=== PATIENT | female | born 1935 | race Caucasian/White ===

== ENCOUNTER 2019-01-30 20:37 | Emergency (ER) | payer SELFPAY ==
[~2019-01-30] VITALS: Ht 152.4 cm; Wt 65.8 kg
[2019-01-30 22:04] VITALS: BP 176/85; PULSE 99; RESP 20; Ht 152.4 cm; Wt 65.8 kg
== END 2019-01-31 02:38 | disposition left against medical advice (07) ==
LOC: E/R 20:37
DX: Z53.21 Procedure and treatment not carried out due to patient leaving prior to being seen by health care provider (principal)

== ENCOUNTER 2019-03-24 11:02 | Inpatient (IN) | payer MEDICARE, OTHER ==
[~2019-03-24] VITALS: Ht 157.5 cm; Wt 56.8 kg
[~2019-03-24 11:02] MED LIST: AMLO5TAB4 PO; ATOR-2 PO; CALC500T11 PO; DEXA4TAB PO; GABA300C16 PO; LEVO25TA6 PO; LEVO500T48 PO; LIPA1CAP6 PO; METO-429 PO; ONDA4TAB13 PO; PANT40TA3 PO; PROP20TA4 PO
[2019-03-24] MEDS ORDERED: SOD CHLORIDE 0.9% 1,000 ML IV STA (11:54)
--- NOTE | 2019-03-24 13:09 | ERD ---
ER Documentation Chief Complaint Chief Complaint BIBA from home c/o: altered, memory loss, incontinence x2days HPI This is an 83-year-old woman brought in by EMS from home for 2 days of confusion, loss of bladder control, not getting out of bed or speaking. Prior to 2 days ago patient was able to ambulate and speak in full sentences and hold a conversation although family members are at the bedside today for the last 2 days she is appeared weak and has not been able to get out of bed and has not been speaking to them. She has had no seizure activity, no fevers or chills, no vomiting or diarrhea. ROS All systems reviewed and are negative except as per history of present illness. Medications Home Meds Reported Medications Ondansetron Hcl* (Zofran*) 4 Mg Tab, 4 MG PO Q6H PRN for NAUSEA AND OR VOMITING, TAB 03/24/19 Metoprolol Tartrate* (Lopressor*) 50 Mg Tab, 50 MG PO DAILY, #60 TAB 03/24/19 Atorvastatin* (Atorvastatin*) 80 Mg Tablet, 80 MG PO QHS, #30 TAB 03/24/19 Dmnnqt-Mdypzpsu-Ouobxgd* (Creon DR* 24,000) 24,000 L-76,000-120,000 Unit Capsule., 1 CAP PO WITH MEALS, CAP 03/24/19 Pantoprazole* (Protonix*) 40 Mg Tablet.dr, 40 MG PO DAILY, TAB 03/24/19 Amlodipine Besylate* (Norvasc*) 5 Mg Tablet, 5 MG PO DAILY, TAB 03/24/19 Gabapentin* (Gabapentin*) 300 Mg Capsule, 300 MG PO BID, #60 CAP 03/24/19 Propranolol Hcl* (Propranolol Hcl*) 20 Mg Tablet, 20 MG PO BID, TAB 03/24/19 Calcium Carbonate (Oysco-500) 500 Mg Tablet, 500 MG PO DAILY, TAB 03/24/19 Levothyroxine Sodium* (Levothyroxine Sodium*) 25 Mcg Tablet, 25 MCG PO BEFORE BREAKFAST, #30 TAB 03/24/19 Levofloxacin* (Levaquin*) 500 Mg Tablet, 500 MG PO DAILY, TAB for 7 days, start date 03/23/19 03/24/19 Allergies Allergies: Coded Allergies: No Known Allergy (Unverified , 03/24/19) PMhx/Soc Hypothyroidism, hypertension, gastritis, arthritis, mild dementia Medical and Surgical Hx: pt denies Surgical Hx Hx Cardiac Disorders: Yes (Hypertension) Hx Alcohol Use: No Hx Substance Use: No Hx Tobacco Use: No Smoking Status: Never smoker FmHx Family History: No diabetes Physical Exam Vitals Vital Signs Date Temp Pulse Resp B/P (MAP) Pulse Ox O2 O2 Flow FiO2 Time Delivery Rate 03/24/19 84 20 149/81 99 Room Air 13:29 (103) 03/24/19 98.1 88 16 157/71 96 11:18 (99) Physical Exam GENERAL: Well-developed, well-nourished elderly woman, nontoxic in appearance, afebrile HEENT: Moist mucous membranes, pink conjunctiva, no cervical spine tenderness or step-off deformities, no goiter, no jaundice or icterus NEURO: Eyes are closed, pupils equal round reactive to light, patient is mostly aphasic but able to follow simple commands, no focal deficits or facial asymmetry CARDIAC: Regular rate and rhythm, no murmurs rubs or gallops LUNGS: Clear bilaterally no wheezing crackles or stridor PSYCH: Normal affect without agitation or irritability Result Diagram: 03/24/19 1120 03/24/19 1120 Results 24 hrs Laboratory Tests Test 03/24/19 11:14 03/24/19 11:20 03/24/19 12:22 Bedside Glucose 125 mg/dL White Blood Count 8.5 10^3/ul Red Blood Count 4.42 10^6/ul Hemoglobin 13.5 g/dl Hematocrit 37.3 % Mean Corpuscular Volume 84.4 fl Mean Corpuscular Hemoglobin 30.5 pg Mean Corpuscular 36.2 g/dl Hemoglobin Concent Red Cell Distribution Width 11.9 % Platelet Count 314 10^3/UL Mean Platelet Volume 8.9 fl Immature Granulocytes % 0.400 % Neutrophils % 76.9 % Lymphocytes % 17.5 % Monocytes % 4.7 % Eosinophils % 0.1 % Basophils % 0.4 % Nucleated Red Blood Cells % 0.0 /100WBC Immature Granulocytes # 0.030 10^3/ul Neutrophils # 6.5 10^3/ul Lymphocytes # 1.5 10^3/ul Monocytes # 0.4 10^3/ul Eosinophils # 0.0 10^3/ul Basophils # 0.0 10^3/ul Nucleated Red Blood Cells # 0.0 10^3/ul Sodium Level 124 mmol/L Potassium Level 4.1 mmol/L Chloride Level 88 mmol/L Carbon Dioxide Level 22 mmol/L Anion Gap 14 Blood Urea Nitrogen 9 mg/dl Creatinine 0.54 mg/dl Est Glomerular Filtrat mL/min Rate mL/min Glucose Level 126 mg/dl Calcium Level 9.6 mg/dl Total Bilirubin 0.8 mg/dl Direct Bilirubin 0.00 mg/dl Indirect Bilirubin 0.8 mg/dl Aspartate Amino 45 IU/L Transf (AST/SGOT) Alanine 27 IU/L Aminotransferase (ALT/SGPT) Alkaline Phosphatase 53 IU/L Troponin I < 0.012 ng/ml Total Protein 9.2 g/dl Albumin 4.9 g/dl Globulin 4.30 g/dl Albumin/Globulin Ratio 1.13 Lipase 61 U/L Urine Color YELLOW Urine Clarity SLIGHTLY CLOUDY Urine pH 9.0 Urine Specific [place] 1.010 Urine Ketones NEGATIVE mg/dL Urine Nitrite NEGATIVE mg/dL Urine Bilirubin NEGATIVE mg/dL Urine Urobilinogen NEGATIVE mg/dL Urine Leukocyte Esterase NEGATIVE Carlos/ul Urine Microscopic RBC 19 /HPF Urine Microscopic WBC 2 /HPF Urine Amorphous Crystals FEW /HPF Urine Hemoglobin 1+ mg/dL Urine Glucose NEGATIVE mg/dL Urine Total Protein NEGATIVE mg/dl Current Medications Medications Dose Sig/Kalyani Start Time Status Last (Trade) Ordered Route PRN Stop Time Admin Dose Reason Admin Sodium 1,000 ml @ Q1H STAT 03/24/19 DC 03/24/19 Chloride 1,000 mls/hr IV 11:54 12:21 03/24/19 12:53 Procedures/MDM IV line was established patient was placed on surfacer operator rhythm strip revealed a sinus rhythm at about 80 bpm with upright P and T waves. Patient was afebrile Blood sugar was normal. Administered 1 L normal saline IV. EKG performed, read by me: 84 bpm, normal sinus rhythm, normal axis, first- degree AV block with DE interval at 238 ms, no acute ST segment changes, narrow QRS complex, with good R-wave progression in precordial leads. One AP view of the chest performed, read by me reveals no acute infiltrates, nor mal mediastinum, sharp costophrenic and cardiac borders, no air under the diaphragm. Otherwise unremarkable chest x-ray. CT scan of the brain was performed revealing bilateral ring-enhancing masses w ith surrounding edema concerning for metastatic disease. Please refer to radiologist dictation for full report CBC was Unremarkable, electrolytes revealed mild hyponatremia at 124, liver function te st normal, troponin negative, urinalysis negative for infection. I spoke to neurosurgeon on-call regarding the patient's presentation and symptomatology, he agreed to admit the patient and will follow up. Patient admitted to telemetry setting under Dr. Roth Departure Diagnosis: Primary Impression: Altered level of consciousness Additional Impressions: Neoplasm of brain causing mass effect on adjacent structures Acute hyponatremia Condition: ANITHA Watson MD Mar 24, 2019 13:08
[2019-03-24] MEDS ORDERED: IOHEXOL 300MG/ML 150 ML BTL ONE (13:50)
[2019-03-24] MEDS ORDERED: SOD CHLORIDE 0.9% 100 ML ONE (13:51)
[2019-03-24] MEDS ORDERED: KETOROLAC 15 MG INJ IV STA (14:57)
[2019-03-24] MEDS ORDERED: DEXAMETHASONE 10 MG/ML 1 ML INJ IV ONE (17:30)
[2019-03-24 19:00] VITALS: Ht 157.5 cm; Wt 56.8 kg
[2019-03-24 19:02] VITALS: BP 146/67; PULSE 75; RESP 19
[2019-03-24] MEDS: FAMOTIDINE 20 MG INJ IV SCH (20:18)
[2019-03-24] MEDS: DEXTROSE 5%-0.9% NACL 1,000 ML IV SCH (20:24)
[2019-03-25] VITALS (9 sets, daily range): BP systolic 93–162; BP diastolic 56–80; PULSE 73–120; RESP 17–19
[2019-03-25] MEDS ORDERED: DEXAMETHASONE 10 MG/ML 1 ML INJ IV SCH
[2019-03-25] MEDS: DEXAMETHASONE 4 MG/ML 1 ML INJ IV SCH ×5 (01:03→23:12)
--- NOTE | 2019-03-25 06:22 | HP ---
DATE OF ADMISSION: 03/24/2019 CHIEF COMPLAINT: Altered mental status. HISTORY OF PRESENT ILLNESS: An 83-year-old female with a history of hypertension and mild d ementia, was brought in by the paramedics after the family noted altered mental status for the last 2 days prior to admission. The patient was noted to be staying in the bed and not speaking to them. Apparently, prior to this, the patient was ambulatory and speaking clearly. Her family did not notic e any nausea or vomiting. No fevers or chills. Initial evaluation in the emergency room included a CAT scan of the brain. It showed bilateral round parenchymal brain masses with dense rings and surro unding edema. This is highly for metastasis. The patient also had an abdominal pelvic CT. It showe d 90 mm noncalcified solid nodule in the central right upper lobe, which was again highly suspicious for primary lung cancer. The patient was found to have a serum sodium of 124. PAST MEDICAL HISTORY: 1. Hypertension. 2. Hypothyroidism. 3. Osteoarthritis. 4. Mild dementia. MEDICATIONS PRIOR TO ADMISSION: 1. Metoprolol. 2. Lipitor. 3. Protonix. 4. Amlodipine. 5. Gabapentin. 6. Calcium carbonate. 7. Levothyroxine 8. Levaquin. SOCIAL HISTORY: Patient lives at home with family members. There is no history of tobacco use. PHYSICAL EXAMINATION: GENERAL: Well-developed, well-nourished elderly female who is poorly responsive. VITAL SIGNS: Stable. She is afebrile. HEENT: Extraocular muscles intact. Pupils are equal and reactive to light bilaterally. Sclerae are anicteric. Oropharynx is dry. LUNGS: Clear to auscultation bilaterally. CARDIAC: Regular rate and rhythm. No murmurs, rubs or gallops. ABDOMEN: Soft, normoactive bowel sounds. EXTREMITIES: No clubbing, cyanosis, or edema. LABORATORY DATA: CBC is within normal limits. BUN and creatinine of 9 and 0.54. C-reactive protein was less than 0.5, total protein was elevated to 9.2. Lipase was 61. ASSESSMENT: 1. An 83-year-old female with a 2-day history of altered mental status, is found to have multiple ri ng enhancing brain masses, highly suspicious for metastatic disease. 2. Right upper lobe lung mass highly suspicious for primary lung cancer. 3. Hyponatremia. 4. Hypertension. 5. Hypothyroidism. 6. Mild dementia. PLAN: 1. Admit to telemetry, proceed with MRI of brain. 2. CAT scan of the chest with and without contrast. 3. Consider a CT-guided biopsy of lung mass. 4. Neurosurgical consultation was requested. Dictated By: JULIÁN YOUNG/CADY Conf#: [id number] DID#: [id number]
[2019-03-25] MEDS: FAMOTIDINE 20 MG INJ IV SCH ×2 (08:10→21:20)
[2019-03-25] MEDS: DEXTROSE 5%-0.9% NACL 1,000 ML IV SCH ×2 (08:11→18:43)
--- NOTE | 2019-03-25 09:05 | PDOCDIS ---
Discharge Instructions CONDITION [id number] Patient Condition: [id number] Fair HOME CARE INSTRUCTIONS: [id number] Diet Instructions: [id number] y FOLLOW UP/APPOINTMENTS Follow-up Plan pcp 1 week oncology 1 week JULIÁN BELTRAN MD Mar 25, 2019 09:05
--- NOTE | 2019-03-25 09:25 | PN ---
Date/Time of Note Date/Time of Note DATE: 03/25/19 TIME: 09:22 Subjective Doing better today. More alert and responsive. Complains of mild headache Objective Vitals Vital Signs Date Temp Pulse Resp B/P (MAP) Pulse Ox O2 O2 Flow FiO2 Time Delivery Rate 03/25/19 97.8 114 18 146/80 95 07:23 (102) 03/24/19 Room Air 19:02 Intake and Output 03/24/19 03/24/19 03/25/19 1515:00 23:00 07:00 IntakeIntake Total 200 ml OutputOutput Total 1600 ml 1800 ml BalanceBalance -1600 ml -1600 ml Neck supple Clear to auscultation bilaterally Regular rate and rhythm Soft nontender nondistended normoactive bowel sounds No edema Nonfocal Results Result Diagram: 03/24/19 1120 03/25/19 0506 Medications Medications Current Medications Dextrose/Sodium Chloride 1,000 ml @ 80 mls/hr [id number] IV Last administered on 03/25/19at 08:11; Admin Dose 80 MLS/HR; Start 03/24/19 at 17:30 Famotidine (Pepcid Iv) 20 mg Q12 IV Last administered on 03/25/19at 08:10; Admin Dose 20 MG; Start 03/24/19 at 21:00 Dexamethasone (Decadron) 4 mg Q6 IV Last administered on 03/25/19at 05:44; Admin Dose 4 MG; Start 03/25/19 at 00:00 VTE Prophylaxis SCD applied (from Ns): Yes Lines/Catheters IV Catheter Type: Saline Lock Laguerre in Place: No Assessment/Plan Assessment/Plan 83-year-old female with altered mental status Right lung mass. Rule out primary lung cancer Very diffuse metastatic brain disease. MRI of brain shows too numerous to count lesions of different sizes Hypertension Mild dementia Hyponatremia, improved Proceed with CT-guided lung biopsy Continue Decadron Physical therapy Case was discussed with Dr. Ornelas. There is no indication for neurosurgical intervention Discharge planning to home versus SNF Plan of care was discussed with her daughter. JULIÁN BELTRAN MD Mar 25, 2019 09:25
[2019-03-26 00:21] VITALS: BP 156/67; PULSE 90; RESP 18
[2019-03-26 03:59] VITALS: BP 147/71; PULSE 92; RESP 18
[2019-03-26] MEDS: DEXAMETHASONE 4 MG/ML 1 ML INJ IV SCH ×3 (06:14→17:51)
[2019-03-26] MEDS: DEXTROSE 5%-0.9% NACL 1,000 ML IV SCH (06:18)
[2019-03-26 07:21] VITALS: BP 139/65; PULSE 85; RESP 17
--- NOTE | 2019-03-26 10:08 | PDOCDIS ---
Discharge Instructions CONDITION [id number] Patient Condition: [id number] Fair HOME CARE INSTRUCTIONS: [id number] Diet Instructions: [id number] y FOLLOW UP/APPOINTMENTS Follow-up Plan pcp 1 week oncology 1 week JULIÁN BELTRAN MD Mar 26, 2019 10:08
[2019-03-26] MEDS: FAMOTIDINE 20 MG INJ IV SCH (11:14)
[2019-03-26 11:28] VITALS: BP 162/76; PULSE 81; RESP 18
[2019-03-26] MEDS ORDERED: LIDOCAINE 1% (MPF) 5 ML VIAL ONE (12:53)
[2019-03-26] MEDS ORDERED: LIDOCAINE 1% (MDV) 20 ML INJ ONE (12:54)
[2019-03-26 15:59] VITALS: BP 158/91; PULSE 91; RESP 18
--- NOTE | 2019-03-27 04:10 | DS ---
DATE OF ADMISSION: 03/24/2019 DATE OF DISCHARGE: 03/26/2019 DISCHARGE DIAGNOSES: 1. An 83-year-old female with altered mental status, improved. 2. Right lung mass highly suspicious for primary lung cancer. 3. Very diffuse metastatic brain disease. 4. Hypertension. 5. Mild to moderate dementia. 6. Hyponatremia, improved. HOSPITAL COURSE: An 83-year-old female who presented to the emergency room with altered men idalmis status. A CAT scan of the brain showed several brain lesions consistent with metastatic disease. MRI of brain showed too numerous to count bilateral stable hemispheric and bilateral cerebellar hem ispheric masses compatible with diffuse metastatic disease. The largest mass in the left piriform oc cipital lobe measured 2.5 cm. There was no definite evidence of acute hemorrhage, infarct, or hernia tion. There was surrounding vasogenic edema. CAT scan of the abdomen and pelvis showed a right lung mass with associated lymphadenopathy. The patient was evaluated by Dr. Ornelas. There is no indication for neurosurgical intervention. I st arted her on Decadron. The patient was unsteady with physical therapy. The plan is a CT-guided biop sy of the lung mass. The patient will then go to alf facility for physical therapy. Jayme banegas requested a followup with oncology as an outpatient after the biopsy result is available. The pl an of care was discussed with her daughter at the bedside. MEDICATIONS ON DISCHARGE: 1. Decadron 4 mg p.o. every 8 hours. 2. Amlodipine 5 mg daily. 3. Lipitor 80 mg at bedtime. 4. Gabapentin 300 mg t.i.d. 5. Levothyroxine 25 mcg daily. 6. Metoprolol 50 mg daily. 7. Protonix 40 mg daily. DISCHARGE FOLLOWUP: With PCP and oncology as an outpatient. Dictated By: JULIÁN YOUNG/NTS Conf#: [id number] DID#: [id number] CC: HARDEEP HAINES MD;*EndCC*
--- NOTE | 2019-03-27 22:06 | CONS ---
SANDRA NICE MD Mar 27, 2019 22:06
== END 2019-03-26 18:32 | DRG 55 ==
LOC: E/R 11:02 → 6WM 13:24
PROVIDERS: ADMIT Internal Medicine; ATTEND Internal Medicine
DX: C79.31 Secondary malignant neoplasm of brain (principal); C34.91 Malignant neoplasm of unspecified part of right bronchus or lung; E87.1 Hypo-osmolality and hyponatremia; R41.82 Altered mental status, unspecified; I10 Essential (primary) hypertension; E03.9 Hypothyroidism, unspecified; F03.90 Unspecified dementia, unspecified severity, without behavioral disturbance, psychotic disturbance, mood disturbance, and anxiety
CPT/HCPCS: 36415; 70450; 70553; 71045; 71250; 71260; 74177; 80048; 80053; 81001; 82962; 83690; 84484; 85025; 85610; 85651; 85730; 86140; 87086; 93005; 97161; J1100; J1885; J7030; J7042; Q9967